=== PATIENT | female | born 1990 | race Caucasian/White ===

== ENCOUNTER 2022-09-27 08:15 | Outpatient (CLI) | payer OTHER ==
[2022-09-27 19:12] LABS: CHLAMYDIA TRACHOMATIS DNA NEGATIVE (NEGATIVE); NEISSERIA GONORRHOEAE DNA NEGATIVE (NEGATIVE)
[2022-09-27 20:12] LABS: BACTERIAL VAGINOSIS DNA POSITIVE (NEGATIVE); CANDIDA GLABRATA DNA NEGATIVE (NEGATIVE); CANDIDA GROUP DNA POSITIVE (NEGATIVE); CANDIDA KRUSEI DNA NEGATIVE (NEGATIVE); TRICHOMONAS VAGINALIS DNA NEGATIVE (NEGATIVE)
[2022-09-28 03:15] LABS: HIV SCREEN 4TH GENERATION Non Reactive (Non Reactive)
[2022-09-28 06:15] LABS: RPR Non Reactive (Non Reactive)
== END 2022-09-27 08:30 | disposition home or self-care (01) ==
LOC: LAB.N 08:15
PROVIDERS: ATTEND Specialist
DX: Z11.3 Encounter for screening for infections with a predominantly sexual mode of transmission (principal)
CPT/HCPCS: 36415; 81514; 86592; 87389; 87491; 87591; 87661

== ENCOUNTER 2023-10-04 08:00 | Outpatient (CLI) | payer OTHER ==
[2023-10-04 15:46] LABS: BILIRUBIN,URINE NEGATIVE (NEGATIVE); GLUCOSE, URINE (UA) NEGATIVE (NEGATIVE); KETONES,URINE (UA) TRACE mg/dL (NEGATIVE); LEUKOCYTE ESTERASE, URINE NEGATIVE (NEGATIVE); NITRITE,URINE NEGATIVE (NEGATIVE); OCCULT BLOOD,URINE NEGATIVE (NEGATIVE); PROTEIN,URINE NEGATIVE (NEGATIVE); UROBILINOGEN,URINE 0.2 (NORMAL) E.U./dL (NORMAL)
[2023-10-04 15:53] LABS: CLARITY,URINE CLOUDY (CLEAR)
[2023-10-04 16:18] LABS: AMORPHOUS SEDIMENT,UR Moderate /LPF; BACTERIA,URINE None Seen /HPF (None Seen); RBC,URINE None Seen /HPF (0-5); SQUAMOUS EPITHELIAL CELL,UR FEW Squamous (<= Few); WBC,URINE 0-3 /HPF (0-5)
== END 2023-10-04 23:59 | disposition home or self-care (01) ==
LOC: LAB.WC 08:00
PROVIDERS: ATTEND Obstetrics & Gynecology
DX: Z34.90 Encounter for supervision of normal pregnancy, unspecified, unspecified trimester (principal)
CPT/HCPCS: 81001; 81003; 87086

== ENCOUNTER 2023-10-10 16:14 | Emergency (ER) | payer OTHER ==
[2023-10-10 16:59] LABS: BASOPHILS % (AUTO) 0.2 %; EOSINOPHILS % (AUTO) 0.2 %; HGB - HEMOGLOBIN 13.2 g/dL (12.0-16.0); LYMPHOCYTES # (AUTO) 1.8 10^3/uL (1.5-3.5); LYMPHOCYTES % (AUTO) 14.7 %; MEAN CORPUSCULAR HEMOGLOBIN 28.3 pg (27.0-31.0); MEAN CORPUSCULAR HGB CONC 33.8 g/dL (32.0-36.0); MEAN CORPUSCULAR VOLUME 83.5 fL (81.0-99.0); MEAN PLATELET VOLUME 9.4 fL (7.9-10.8); MONOCYTES # (AUTO) 0.5 10^3/uL (0.0-1.0); MONOCYTES % (AUTO) 4.2 %; NEUTROPHILS % (AUTO) 80.4 %; PLT - PLATELET COUNT 251 10^3/uL (130-450); RED BLOOD COUNT 4.67 10^6/uL (4.20-5.40); RED CELL DISTRIBUTION WIDTH 11.9 % (12.0-15.0); WHITE BLOOD COUNT 12.4 x10^3/uL (4.8-10.8)
[2023-10-10 17:10] LABS: ALBUMIN 4.4 g/dL (3.2-5.5); ALBUMIN/GLOBULIN RATIO 1.7 (1.0-2.2); BILIRUBIN,TOTAL 0.2 mg/dL (0.2-1.0); CALCIUM 9.6 mg/dL (8.5-10.3); CREATININE 0.6 mg/dL (0.6-1.3); POTASSIUM 4.1 mmol/L (3.5-4.5)
--- NOTE | 2023-10-10 17:46 | ED Physician Documentation ---
PD HPI ABD PAIN - Stated complaint Stated Complaint: NAUSEA - Chief complaint Chief Complaint: Abd Pain - History obtained from History obtained from: Patient - Additional information Additional information: This is a 33-year-old female who is approximately 9 weeks who presents with nausea vomiting and lower abdominal pain. At she has not had any vaginal bleeding, no flank pain, no fever, no dysuria/urg/freq. She has had substantial difficulty keeping anything down. This is her third however her first ended in a miscarriage and her second was terminated. She has not yet had a first trimester ultrasound or evaluation in this yet. Review of Systems Constitutional: reports: Reviewed and negative Eyes: reports: Reviewed and negative Nose: reports: Reviewed and negative Throat: reports: Reviewed and negative Cardiac: reports: Reviewed and negative Respiratory: reports: Reviewed and negative GI: reports: Abdominal Pain, Nausea, Vomiting : reports: Now EGA Skin: reports: Reviewed and negative Musculoskeletal: reports: Reviewed and negative Neurologic: reports: Reviewed and negative PD PAST MEDICAL HISTORY - Past Medical History Past Medical History: No - Past Surgical History Past Surgical History: No - Present Medications Home Medications: Ambulatory Orders Medication Instructions Recorded Confirmed Doxylamine/Pyridoxine HCl 1 each PO HS #30 tab 10/10/23 [Diclegis Dr 10-10 mg Tablet] Ondansetron Odt [Zofran] 4 mg TL Q6H PRN #10 tablet 10/10/23 Pnv No.95/Ferrous Fum/Folic AC 1 each PO DAILY 10/10/23 10/10/23 [ [place]] - Allergies Allergies/Adverse Reactions: Allergies Allergy/AdvReac Type Severity Reaction Status Date / Time No Known Drug Allergies Allergy Verified 10/10/23 16:37 - Social History Does the pt smoke?: No Smoking Status: Never smoker Does the pt drink ETOH?: No Does the pt have substance abuse?: No - Immunizations Immunizations are current?: Yes PD ED PE NORMAL - Vitals Vital signs reviewed: Yes - General General: Alert and oriented X 3, No acute distress, Well developed/nourished - HEENT HEENT: Atraumatic, Moist mucous membranes - Neck Neck: Supple, no meningeal sign, No JVD - Cardiac Cardiac: RRR, No murmur, No gallop, No rub - Respiratory Respiratory: No respiratory distress, Clear bilaterally - Abdomen Abdomen: Normal bowel sounds, Soft, Non tender, Non distended - Back Back: No CVA TTP - Derm Derm: Normal color, Warm and dry, No rash Results - Vitals Vitals: Vital Signs - 24 hr 10/10/23 10/10/23 16:33 19:41 Temperature 36.4 C L Heart Rate 71 71 Respiratory 20 18 Rate Blood Pressure 144/83 H 108/74 O2 Saturation 100 99 Oxygen O2 Source Room air - Labs Labs: Laboratory Tests 10/10/23 10/10/23 10/10/23 16:51 16:51 16:51 WBC 12.4 H RBC 4.67 Hgb 13.2 Hct 39.0 MCV 83.5 MCH 28.3 MCHC 33.8 RDW 11.9 L Plt Count 251 MPV 9.4 Neut # (Auto) 10.0 H Lymph # (Auto) 1.8 [place] # (Auto) 0.5 Eos # (Auto) 0.0 Baso # (Auto) 0.0 Absolute Nucleated RBC 0.00 Nucleated RBC % 0.0 Sodium 135 Potassium 4.1 Chloride 103 Carbon Dioxide 26 Anion Gap 6.0 BUN 12 Creatinine 0.6 Estimated GFR (MDRD) 117 Glucose 86 Calcium 9.6 Total Bilirubin 0.2 AST 15 ALT 13 Alkaline Phosphatase 53 Total Protein 7.0 Albumin 4.4 Globulin 2.6 Albumin/Globulin Ratio 1.7 Lipase 13 Serum HCG, Qual POSITIVE Urine Color Urine Clarity Urine pH Ur Specific [place] Urine Protein Urine Glucose (UA) Urine Ketones Urine Occult Blood Urine Nitrite Urine Bilirubin Urine Urobilinogen Ur Leukocyte Esterase Ur Microscopic Review Urine Culture Comments 10/10/23 17:35 WBC RBC Hgb Hct MCV MCH MCHC RDW Plt Count MPV Neut # (Auto) Lymph # (Auto) [place] # (Auto) Eos # (Auto) Baso # (Auto) Absolute Nucleated RBC Nucleated RBC % Sodium Potassium Chloride Carbon Dioxide Anion Gap BUN Creatinine Estimated GFR (MDRD) Glucose Calcium Total Bilirubin AST ALT Alkaline Phosphatase Total Protein Albumin Globulin Albumin/Globulin Ratio Lipase Serum HCG, Qual Urine Color YELLOW Urine Clarity CLEAR Urine pH 6.0 Ur Specific [place] >=1.030 H Urine Protein NEGATIVE Urine Glucose (UA) NEGATIVE Urine Ketones NEGATIVE Urine Occult Blood NEGATIVE Urine Nitrite NEGATIVE Urine Bilirubin NEGATIVE Urine Urobilinogen 0.2 (NORMAL) Ur Leukocyte Esterase NEGATIVE Ur Microscopic Review NOT INDICATED Urine Culture Comments NOT INDICATED - Rads (name of study) No standard instances Relevant Findings:: Final report received PD Medical Decision Making - ED course Complexity details: reviewed results, re-evaluated patient, considered differential, d/w patient ED course: 33-year-old female presents with nausea vomiting and lower abd pain as well as first trimester . She believes she is about 9 weeks , has not had a evaluation or US yet. She has had difficulty with p.o. intake for couple of weeks now but worsened last few days. She is well-appearing on physical exam, afebrile nontoxic and in no acute distress. She did have multiple episodes of vomiting here therefore we will place the IV and give her IV hydration as well as IV antiemetics. We will obtain a ultrasound to confirm intrauterine . Labs are obtained which are largely reassuring, no sign of urinary tract infection or substantial electrolyte abnormality. Patient likely to be able to discharge home after hydration and ultrasound. Ultrasound reassuring, shows a intrauterine at 8 weeks 3 days and a simple ovarian cyst and small subchorionic hematoma. No other acute findings. Labs reassuring and patient is feeling much better after receiving Zofran and now tolerating po. Suspect n/v secondary to . No signs of UTI, ectopic, or other concerning findings. Advised that she can continue as needed Zofran, and have also prescribed diclegis. Pt has new OB appt in a couple of weeks. Return precautions reviewed. Departure - Departure Disposition: 01 Home, Self Care Clinical Impression: First trimester , Nausea and vomiting during prior to 22 weeks gestation Condition: Good Instructions: ED Preg Morning Sickness Prescriptions: Doxylamine/Pyridoxine HCl [Diclegis Dr 10-10 mg Tablet] 1 each PO HS #30 tab Ondansetron Odt [Zofran] 4 mg TL Q6H PRN #10 tablet PRN Reason: Nausea / Vomiting Comments: Your ultrasound showed a healthy at 8 weeks 3 days, and Your labs today are stable. Your symptoms are likely due to to early and morning sickness. As we discussed, I recommend trying to eat very small but frequent meals throughout the day and even at nighttime to avoid having your stomach completely empty. I have prescribed to medications to help with nausea. One of them you should take at nighttime because it can make you quite sleepy. And then the other medication can be taken during the day if needed. Please keep your follow-up appointment with your OB later this month, and return to the ER if any worsening symptoms. Forms: PCP List Discharge Date/Time: 10/10/23 19:41
[2023-10-10 17:50] LABS: BILIRUBIN,URINE NEGATIVE (NEGATIVE); GLUCOSE, URINE (UA) NEGATIVE (NEGATIVE); KETONES,URINE (UA) NEGATIVE (NEGATIVE); LEUKOCYTE ESTERASE, URINE NEGATIVE (NEGATIVE); NITRITE,URINE NEGATIVE (NEGATIVE); OCCULT BLOOD,URINE NEGATIVE (NEGATIVE); PROTEIN,URINE NEGATIVE (NEGATIVE); UROBILINOGEN,URINE 0.2 (NORMAL) E.U./dL (NORMAL)
[2023-10-10 17:51] LABS: CLARITY,URINE CLEAR (CLEAR)
[2023-10-10] MEDS: ONDANSETRON ODT 4 MG TABLET TL STA (18:00)
[2023-10-10 18:37] LABS: HCG,QUALITATIVE BLOOD POSITIVE
[2023-10-10] MEDS ORDERED: ONDANSETRON ODT 4 MG Prepack 2 TL PRN (18:51)
--- NOTE | 2023-10-10 19:03 | Ultrasound Report ---
PROCEDURE: OB 1st Trimester INDICATIONS: 9 weeks , abd pain, no prior us OUTSIDE/PRIOR DATING DATA: Last menstrual period (LMP): 08/10/2023. LMP-based estimated date of delivery (JOCELIN): 05/16/2024. First dating scan (date and location): 10/10/2023. Estimated date of delivery (JOCELIN) from first dating scan: 05/18/2024. TECHNIQUE: Real-time scanning was performed of the fetus and maternal pelvic organs, with image documentation. COMPARISON: None. FINDINGS: Intrauterine gestational sac present. Embryo: [place]-rump length measures 1.87 cm. Estimated gestational age is 8 weeks, 3 days, 30.7%. Heart rate: 176 bpm. Other: Small subchorionic hemorrhage is seen measures 2.2 x 0.9 x 1.6 cm Measurement variability in dating: +/- 4 weeks by LMP, +/- 7 days by mean sac diameter (use before 6 weeks gestation if crown-rump length not able to be measured), +/- 5 days by crown-rump length (6-12 weeks gestation). Maternal organs: Simple right ovarian cyst is seen measures 2.6 x 2.5 x 3 cm in size. IMPRESSION: 1. Single live intrauterine gestation with fetus seen. heart rate is 176 bpm. Estimated gestati onal age is 8 weeks, 3 days. 2. Small subchorionic hematoma as above. 3. Simple appearing right ovarian cyst. No ectopic gestational sac. No adnexal mass. Reviewed by: Fermín Christian MD on 10/10/2023 7:02 PM PDT Approved by: Fermín Christian MD on 10/10/2023 7:02 PM PDT Station ID: [id number]
[2023-10-10] MEDS: SODIUM CHLORIDE 0.9% 1,000 ML IV STA (19:10)
[2023-10-10] MEDS: ONDANSETRON 4 MG/2 ML VIAL IVP STA (19:10)
[2023-10-10 19:50] VITALS: BP 108/74; O2SAT 99
== END 2023-10-10 19:41 | disposition home or self-care (01) ==
LOC: ED 16:14
DX: O26.891 Other specified pregnancy related conditions, first trimester (principal); R11.2 Nausea with vomiting, unspecified; R10.30 Lower abdominal pain, unspecified; Z3A.08 8 weeks gestation of pregnancy
CPT/HCPCS: 36415; 76801; 80053; 81003; 83690; 84703; 85025; 99284; Q0162; 81001; 87086

== ENCOUNTER 2023-10-19 15:37 | Outpatient (CLI) | payer OTHER ==
--- NOTE | 2023-10-23 13:17 | Ultrasound Report ---
PROCEDURE: OB 1st Trimester w/TV INDICATIONS: POSITIVE TEST OUTSIDE/PRIOR DATING DATA: Last menstrual period (LMP): 08/10/2023. LMP-based estimated date of delivery (JOCELIN): 05/16/2024. First dating scan (date and location): 10/10/2023. Estimated date of delivery (JOCELIN) from first dating scan: 05/18/2024. TECHNIQUE: Real-time scanning was performed of the fetus and maternal pelvic organs, with image documentation. Endovaginal scanning was also performed to better visualize the fetus and maternal ovaries. COMPARISON: None. FINDINGS: Intrauterine gestational sac present. Embryo: pole 2.88 cm corresponds with a 9 week 5 day gestation Heart rate: 176 bpm. Other: EGA by initial ultrasound 10 week 0 day. Measurement variability in dating: +/- 4 weeks by LMP, +/- 7 days by mean sac diameter (use before 6 weeks gestation if crown-rump length not able to be measured), +/- 5 days by crown-rump length (6-12 weeks gestation). Maternal organs: Ovaries right sided corpus luteum cyst. Uterine fibroid 3.5 x 2.1 x 2.7 cm IMPRESSION: Single live intrauterine corresponds to a 9 week 5 day gestation. Incidental uterine fibroid Reviewed by: Cole Leon MD on 10/23/2023 12:16 PM LUIS Approved by: Cole Leon MD on 10/23/2023 12:16 PM LUIS Station ID: [id number]
== END 2023-10-19 15:38 | disposition home or self-care (01) ==
LOC: DI 15:37
PROVIDERS: ATTEND Obstetrics & Gynecology
DX: O34.11 Maternal care for benign tumor of corpus uteri, first trimester (principal); D25.9 Leiomyoma of uterus, unspecified; O34.81 Maternal care for other abnormalities of pelvic organs, first trimester; N83.11 Corpus luteum cyst of right ovary; Z3A.09 9 weeks gestation of pregnancy

== ENCOUNTER 2023-10-30 15:03 | Outpatient (CLI) | payer OTHER ==
[2023-10-30 17:55] LABS: ESTIMATED AVERAGE GLUCOSE 85 mg/dL (70-100); HEMOGLOBIN A1c% 4.6 % (4.27-6.07)
[2023-10-31 12:52] LABS: CHLAMYDIA TRACHOMATIS DNA NEGATIVE (NEGATIVE); NEISSERIA GONORRHOEAE DNA NEGATIVE (NEGATIVE); TRICHOMONAS VAGINALIS DNA NEGATIVE (NEGATIVE)
== END 2023-10-30 15:04 | disposition home or self-care (01) ==
LOC: LAB 15:03
PROVIDERS: ATTEND Obstetrics & Gynecology
DX: Z34.90 Encounter for supervision of normal pregnancy, unspecified, unspecified trimester (principal)
CPT/HCPCS: 36415; 83036; 87491; 87591; 87661

== ENCOUNTER 2023-10-31 15:31 | Outpatient (CLI) | payer OTHER ==
[2023-10-31 15:57] LABS: BASOPHILS % (AUTO) 0.3 %; EOSINOPHILS % (AUTO) 0.4 %; HCT - HEMATOCRIT 34.5 % (37.0-47.0); LYMPHOCYTES % (AUTO) 21.8 %; MEAN CORPUSCULAR HEMOGLOBIN 29.1 pg (27.0-31.0); MEAN CORPUSCULAR HGB CONC 34.8 g/dL (32.0-36.0); MEAN CORPUSCULAR VOLUME 83.7 fL (81.0-99.0); MEAN PLATELET VOLUME 9.7 fL (7.9-10.8); MONOCYTES # (AUTO) 0.4 10^3/uL (0.0-1.0); MONOCYTES % (AUTO) 4.7 %; NEUTROPHILS # (AUTO) 6.8 10^3/uL (1.5-6.6); NEUTROPHILS % (AUTO) 72.6 %; PLT - PLATELET COUNT 218 10^3/uL (130-450); RED BLOOD COUNT 4.12 10^6/uL (4.20-5.40); RED CELL DISTRIBUTION WIDTH 12.3 % (12.0-15.0); WHITE BLOOD COUNT 9.3 x10^3/uL (4.8-10.8)
[2023-10-31 15:58] LABS: BILIRUBIN,URINE NEGATIVE (NEGATIVE); GLUCOSE, URINE (UA) NEGATIVE (NEGATIVE); KETONES,URINE (UA) NEGATIVE (NEGATIVE); LEUKOCYTE ESTERASE, URINE NEGATIVE (NEGATIVE); NITRITE,URINE NEGATIVE (NEGATIVE); OCCULT BLOOD,URINE NEGATIVE (NEGATIVE); PROTEIN,URINE NEGATIVE (NEGATIVE); UROBILINOGEN,URINE 0.2 (NORMAL) E.U./dL (NORMAL)
[2023-10-31 16:03] LABS: CLARITY,URINE CLEAR (CLEAR)
[2023-10-31 16:10] LABS: BACTERIA,URINE Rare /HPF (None Seen); RBC,URINE 0-5 /HPF (0-5); SQUAMOUS EPITHELIAL CELL,UR MOD Squamous (<= Few); WBC,URINE 0-3 /HPF (0-5)
[2023-11-01 04:10] LABS: HBsAG SCREEN Negative (Negative); HIV SCREEN 4TH GENERATION Non Reactive (Non Reactive)
[2023-11-01 05:13] LABS: RPR Non Reactive (Non Reactive)
[2023-11-01 09:10] LABS: VARICELLA-ZOSTER AB IGG 318 index (Immune >165)
== END 2023-10-31 15:32 | disposition home or self-care (01) ==
LOC: LAB 15:31
PROVIDERS: ATTEND Obstetrics & Gynecology
DX: Z34.90 Encounter for supervision of normal pregnancy, unspecified, unspecified trimester (principal)
CPT/HCPCS: 36415; 81001; 81596; 85025; 86592; 86762; 86787; 86803; 86850; 86900; 86901; 87086; 87340; 87389

== ENCOUNTER 2023-11-15 10:34 | Outpatient (CLI) | payer OTHER | END 2023-11-15 10:35 | disposition home or self-care (01) | LOC: LAB 10:34 | PROVIDERS: ATTEND Obstetrics & Gynecology | DX: Z34.90 Encounter for supervision of normal pregnancy, unspecified, unspecified trimester (principal) | CPT/HCPCS: 81599 ==